=== PATIENT | female | born 1950 | race Caucasian/White ===

== ENCOUNTER 2018-12-04 14:06 | Emergency (ER) | payer MEDICARE, OTHER ==
[~2018-12-04] VITALS: Ht 170.2 cm; Wt 97.5 kg
--- NOTE | 2018-12-04 15:29 | NUR ---
PT STATED THAT SHE IS ALLERGIC TO IV IODINE WHEN BEING TAKEN BACK TO CT. PT ALSO STATED SHE DOES NOT WANT A CT TO CONFIRM DIAGNOSIS. PT JUST WANTS ANTIBIOTICS TO TREAT DIVERTICULITIS, PT WAS EXPLAINED THE RISK OF NOT HAVING THE PROCEDURE AND AGREED TO SIGN AN AMA FORM. DR TANG WAS NOTIFIED AND AWARE OF PTS REQUEST.
[2018-12-04 15:34] VITALS: BP 120/82
== END 2018-12-04 15:54 | disposition home or self-care (01) ==
LOC: FSED 14:06
DX: R10.32 Left lower quadrant pain (principal); R19.7 Diarrhea, unspecified; R14.2 Eructation
CPT/HCPCS: 80053; 81003; 85025; 99283